=== PATIENT | male | born 1960 | race Hispanic/Latino ===

== ENCOUNTER → 2018-05-03 | Outpatient (CLI) | payer BC ==
--- NOTE | 2018-05-04 12:50 | US ---
EXAM DESCRIPTION: Testicular: Ultrasound. CLINICAL HISTORY: R30.0. No palpable mass, no prior surgery, no history of trauma. COMPARISON: None. TECHNIQUE: Transcutaneous scanning ; two-dimensional and Doppler modes. FINDINGS: Dimensions of the right testicle are 3.9 x 3.3 x 2.2 cm, with predominantly homogeneous normal echogenicity and normal color Doppler flow. One focal area of decreased echogenicity may represent a cyst. Epididymal head measures 8.3 x 6.3 mm, with normal echogenicity and normal color Doppler flow. No scrotal wall thickening. Moderate Hydrocele. Dimensions of the left testicle are 4.0 x 2.9 x 1.9 cm, with normal echogenicity and normal color Doppler flow. Epididymal head measures 8.5 x 6.7 x 9.5 mm mm, with 6.9 x 4.9 mm anechoic cyst. Otherwise normal echogenicity and normal color Doppler flow. No scrotal wall thickening. No Hydrocele. IMPRESSION: 1. Normal size echogenicity and vascularity of the right testicle and epididymis with moderate hydrocele. No scrotal wall thickening. 2. Normal size echogenicity and vascularity of the left testicle. Epididymal cyst but otherwise unremarkable. No scrotal wall thickening or hydrocele. Electronically signed by: Jaswinder Waldrop MD 05/04/2018 12:48 PM CDT
== END ==
LOC: US 12:52
PROVIDERS: ATTEND Family Medicine
DX: N41.0 Acute prostatitis (principal); R30.0 Dysuria

== ENCOUNTER → 2018-05-20 | Outpatient (CLI) | payer BC ==
--- NOTE | 2018-05-20 16:54 | CT ---
EXAM DESCRIPTION: Abdomen/Pelvis w/o Contrast: Computed Tomography. CLINICAL HISTORY: PELVIC AND PERINEAL PAIN COMPARISON: None. TECHNIQUE: Spiral-axial scans 2.5 x 2.5 mm intervals through the abdomen and pelvis without oral or IV contrast. Coronal and sagittal 2.0 mm reconstructions. Total Exam DLP: 536.34 mGy-cm. This exam was performed according to our departmental CT dose-optimization program which includes automated exposure control, adjustment of the mA and/or kV according to patient size and/or use of iterative reconstruction technique; to reduce radiation dose to as low as reasonably achievable (ALARA). FINDINGS: Lung bases and pleura: Mosaic density in the bilateral lower lobe parenchyma with minimal pleural thickening. Liver, stomach, spleen, and adrenal glands: Long axis of the right hepatic lobe is 18.6 cm. No focal lesions with normal density. Stomach negative. Other solid organs are unremarkable. Pancreas, Gallbladder, and Ducts: Surgical clips in the gallbladder fossa with no fluid. Duct is not dilated. Normal density and size of the pancreas. Kidneys and Ureters: Negative. Mesentery: No free air or fluid. No stranding or fascial thickening. Aorta: Unremarkable. Small Bowel: Small air-fluid levels but no significant distention. Terminal Ileum/Cecum: Normal caliber. Minimal gas. Appendix visualized. Residual high density material in the colon resulting in scatter artifact. Normal caliber of the appendix and normal density of the surrounding fat. Colon: Moderate redundancy of the sigmoid colon. No distention. Pelvic Organs: Prostate gland is abutting the base of the urinary bladder. Questionable thickening of the posterior wall of the urinary bladder. No radiodense stones. Prostate also abutting the seminal vesicles. No free fluid. Spine and Bony Pelvis: Moderate endplate changes and some of the vertebral bodies. No blastic or lytic lesions. Abdominal Wall/Back Soft Tissues: No fatty or bowel hernias. IMPRESSION: 1. Minimal thickening of the base of the urinary bladder and abutting the prostate gland. Correlate with clinical findings. 2. Mild hepatomegaly but no ascites. No intrahepatic biliary dilatation. Smooth capsule and normal density. Previous cholecystectomy. 3. Possible atelectasis in the lung bases. Is there history is respiratory disease, cigarette smoking, or environmental lung exposure? Electronically signed by: Jaswinder Waldrop MD 05/20/2018 4:53 PM SERVICE SPECIALIST
== END ==
LOC: CT 12:20
PROVIDERS: ATTEND Family Medicine
DX: R10.2 Pelvic and perineal pain (principal); R16.0 Hepatomegaly, not elsewhere classified; Z87.442 Personal history of urinary calculi